=== PATIENT | female | born 1970 | race Caucasian/White ===

== ENCOUNTER 2016-09-25 09:11 | Emergency (ER) | payer MEDICAID ==
[2016-09-25] MEDS ORDERED: CYCLOBENZAPRINE HCL 10 MG TABLET PO ONE (10:41)
[2016-09-25] MEDS ORDERED: KETOROLAC TROMETHAMINE 60 MG/2 ML SDV IM ONE (10:41)
[2016-09-25] MEDS ORDERED: TRAMADOL HCL 50 MG TABLET PO ONE (10:49)
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
[2016-09-25 12:56] LABS: APPEARANCE,URINE CLEAR; BILIRUBIN,URINE NEGATIVE (NEGATIVE); GLUCOSE, URINE NEGATIVE (NEGATIVE); KETONES,URINE NEGATIVE (NEGATIVE); LEUKOCYTE ESTERASE,URINE NEGATIVE (NEGATIVE); NITRITE,URINE NEGATIVE (NEGATIVE); PROTEIN,URINE NEGATIVE (NEGATIVE); URINE SPECIFIC GRAVITY 1.005; UROBILINOGEN,URINE NEGATIVE mg/dL (<2.0)
[2016-09-25 13:06] LABS: ABSOLUTE EOSINOPHILS # (AUTO) 0.5 10^3/uL (0.0-0.6); ABSOLUTE LYMPHOCYTES (AUTO) 1.8 10^3/uL (0.5-4.7); ABSOLUTE MONOCYTES (AUTO) 0.5 10^3/uL (0.1-1.4); ABSOLUTE NEUT (AUTO) 5.9 10^3/uL (1.7-8.2); BASOPHILS % (AUTO) 0.4 % (0-2); EOSINOPHILS % (AUTO) 5.5 % (0-6); HEMATOCRIT 44.6 % (36.0-47.0); HGB HCT DIFFERENCE -2.6; LYMPHOCYTES % (AUTO) 20.6 % (13-45); MEAN CORPUSCULAR HGB CONC 31.4 g/dL (32.0-36.0); MEAN CORPUSCULAR VOLUME 92 fl (80-97); MONOCYTES % (AUTO) 5.6 % (3-13); RED BLOOD COUNT 4.83 10^6/uL (3.72-5.28); RED CELL DISTRIBUTION WIDTH 14.4 % (11.5-14.0); SEGMENTED NEUTROPHILS % (AUTO) 67.9 % (42-78); WHITE BLOOD COUNT 8.7 10^3/uL (4.0-10.5)
[2016-09-25 13:17] LABS: ALANINE AMINOTRANSFERASE 116 U/L (9-52); ALBUMIN 4.1 g/dL (3.5-5.0); ALKALINE PHOSPHATASE 137 U/L (38-126); ANION GAP 10 (5-19); ASPARTATE AMINO TRANSFERASE 126 U/L (14-36); BILIRUBIN,TOTAL 0.8 mg/dL (0.2-1.3); BLOOD UREA NITROGEN 7 mg/dL (7-20); CALCIUM 9.4 mg/dL (8.4-10.2); CARBON DIOXIDE 28 mmol/L (22-30); CHLORIDE 108 mmol/L (98-107); CREATININE RESULT 0.71 mg/dL (0.52-1.25); GLUCOSE 82 mg/dL (75-110); POTASSIUM 4.3 mmol/L (3.6-5.0); SODIUM 145.7 mmol/L (137-145); TOTAL PROTEIN 7.1 g/dL (6.3-8.2)
[2016-09-25 14:20] VITALS: BP 123/73
== END 2016-09-25 14:19 | disposition home or self-care (01) ==
LOC: ER 09:11
DX: M54.41 Lumbago with sciatica, right side (principal); G89.29 Other chronic pain; M54.9 Dorsalgia, unspecified; F17.210 Nicotine dependence, cigarettes, uncomplicated
CPT/HCPCS: 99283; 36415; 85025; 80053; 81001; J3490

== ENCOUNTER 2016-09-27 16:53 | Emergency (ER) | payer MEDICAID ==
--- NOTE | 2016-09-27 17:29 | ER Document Report ---
ED Medical Screen (RME) - General Stated Complaint: RIGHT SIDE BACK PAIN Time seen by provider: 17:27 Mode of Arrival: Medic Information source: Patient Notes: 36-year-old female complaining of right-sided low back pain since yesterday morning. She was seen in the emergency department yesterday and given muscle relaxers which are not helping. The pain is persisted. Urine got very strong smelling after she got home yesterday. sHe also has urinary hesitancy. sHe came in by ambulance She did not have a ride to the emergency department like she did yesterday. TRAVEL OUTSIDE OF THE [place] IN LAST 30 DAYS: No - Related Data Allergies/Adverse Reactions: aspirin [Aspirin] Allergy (Severe, Verified 09/25/16 09:29) Difficulty breathing levofloxacin [From Levaquin] Allergy (Severe, Verified 09/25/16 09:29) raw skin morphine [Morphine] Allergy (Severe, Verified 09/25/16 09:29) migraines, n/v Penicillins Allergy (Severe, Verified 09/25/16 09:29) Hives NSAIDS (Non-Steroidal Anti-Inflamma Allergy (Mild, Verified 09/25/16 09:29) STOMACH BLEEDING Past Medical History - Past Medical History Cardiac Medical History: Denies: Hx Coronary Artery Disease, Hx Heart Attack, Hx Hypertension Pulmonary Medical History: Reports: Hx Asthma - "no problems for about 4 years" , Hx Pneumonia - age 3 Denies: Hx Bronchitis, Hx COPD Neurological Medical History: Denies: Hx Cerebrovascular Accident. Comment Only : Hx Seizures - "essential tremors" Endocrine Medical History: Reports: Hx Hypothyroidism. Denies: Hx Diabetes Mellitus Type 1, Hx Diabetes Mellitus Type 2 Renal/ Medical History: Denies: Hx Peritoneal Dialysis GI Medical History: Reports: Hx Gastroesophageal Reflux Disease, Hx Ulcer, Hx Colonoscopy, Hx Endoscopy Musculoskeltal Medical History: Denies Hx Arthritis, Reports Hx Musculoskeletal Deformity, Reports Hx Musculoskeletal Trauma Psychiatric Medical History: Reports: Hx Anxiety, Hx Bipolar Disorder, Hx Depression - ANXIETY, Hx Schizophrenia - AFFECTIVE Traumatic Medical History: Reports: Hx Fractures Past Surgical History: Reports: Hx Abdominal Surgery - GASTRIC BYPASS, LIVER CAUTERY, Hx Appendectomy, Hx Bowel Surgery, Hx Section - X3, Hx Cholecystectomy, Hx Gastric Bypass Surgery, Hx Genitourinary Surgery - tube removal, Hx Herniorrhaphy, Hx Orthopedic Surgery - R SHOULDER, FOOT, Hx Tubal Ligation, Hx Umbilical Hernia. Denies: Hx Hysterectomy - Immunizations Immunizations up to date: Yes Hx Diphtheria, Pertussis, Tetanus Vaccination: Yes - 2014
[2016-09-27 18:15] LABS: APPEARANCE,URINE CLEAR; BILIRUBIN,URINE NEGATIVE (NEGATIVE); GLUCOSE, URINE NEGATIVE (NEGATIVE); KETONES,URINE NEGATIVE (NEGATIVE); LEUKOCYTE ESTERASE,URINE NEGATIVE (NEGATIVE); NITRITE,URINE NEGATIVE (NEGATIVE); PROTEIN,URINE NEGATIVE (NEGATIVE); URINE SPECIFIC GRAVITY 1.003; UROBILINOGEN,URINE NEGATIVE mg/dL (<2.0)
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
[2016-09-27 18:53] VITALS: BP 135/79
== END 2016-09-27 18:53 | disposition home or self-care (01) ==
LOC: ER 16:53
DX: M54.6 Pain in thoracic spine (principal); R10.9 Unspecified abdominal pain; M54.9 Dorsalgia, unspecified; V89.2XXA Person injured in unspecified motor-vehicle accident, traffic, initial encounter
CPT/HCPCS: 81001; 87086; 99284

== ENCOUNTER → 2016-10-22 | Outpatient (CLI) | payer MEDICAID | LOC: RAD 10:13 | PROVIDERS: ATTEND Physician Assistant | DX: R94.5 Abnormal results of liver function studies (principal) | CPT/HCPCS: 76705 ==

== ENCOUNTER 2016-11-28 19:15 | Emergency (ER) | payer MEDICAID ==
--- NOTE | 2016-11-28 19:28 | ER Document Report ---
ED Medical Screen (RME) - General Chief Complaint: Knee Pain Stated Complaint: KNEE PAIN Notes: Patient states she thinks she twisted her right knee coming down the stairs couple of days ago. Pain increases with ambulation. No previous injuries to the knee. Patient is followed by pain management for nerve damage in her back and pain down her left leg.. I have greeted and performed a rapid initial assessment of this patient. A comprehensive ED assessment and evaluation of the patient, analysis of test results and completion of the medical decision making process will be conducted by additional ED providers. TRAVEL OUTSIDE OF THE [place] IN LAST 30 DAYS: No - Related Data Allergies/Adverse Reactions: aspirin [Aspirin] Allergy (Severe, Verified 09/27/16 17:27) Difficulty breathing levofloxacin [From Levaquin] Allergy (Severe, Verified 09/27/16 17:27) raw skin morphine [Morphine] Allergy (Severe, Verified 09/27/16 17:27) migraines, n/v Penicillins Allergy (Severe, Verified 09/27/16 17:27) Hives NSAIDS (Non-Steroidal Anti-Inflamma Allergy (Mild, Verified 09/27/16 17:27) STOMACH BLEEDING Past Medical History - Past Medical History Cardiac Medical History: Denies: Hx Coronary Artery Disease, Hx Heart Attack, Hx Hypertension Pulmonary Medical History: Reports: Hx Asthma - "no problems for about 4 years" , Hx Pneumonia - age 3 Denies: Hx Bronchitis, Hx COPD Neurological Medical History: Denies: Hx Cerebrovascular Accident. Comment Only : Hx Seizures - "essential tremors" Endocrine Medical History: Reports: Hx Hypothyroidism. Denies: Hx Diabetes Mellitus Type 1, Hx Diabetes Mellitus Type 2 Renal/ Medical History: Denies: Hx Peritoneal Dialysis GI Medical History: Reports: Hx Gastroesophageal Reflux Disease, Hx Ulcer, Hx Colonoscopy, Hx Endoscopy Musculoskeltal Medical History: Denies Hx Arthritis, Reports Hx Musculoskeletal Deformity, Reports Hx Musculoskeletal Trauma Psychiatric Medical History: Reports: Hx Anxiety, Hx Bipolar Disorder, Hx Depression - ANXIETY, Hx Schizophrenia - AFFECTIVE Traumatic Medical History: Reports: Hx Fractures Past Surgical History: Reports: Hx Abdominal Surgery - GASTRIC BYPASS, LIVER CAUTERY, Hx Appendectomy, Hx Bowel Surgery, Hx Section - X3, Hx Cholecystectomy, Hx Gastric Bypass Surgery, Hx Genitourinary Surgery - tube removal, Hx Herniorrhaphy, Hx Orthopedic Surgery - R SHOULDER, FOOT, Hx Tubal Ligation, Hx Umbilical Hernia. Denies: Hx Hysterectomy - Immunizations Immunizations up to date: Yes Hx Diphtheria, Pertussis, Tetanus Vaccination: Yes - 2014
--- NOTE | 2016-11-28 21:23 | ER Document Report ---
HPI - HPI Patient complains to provider of: right knee injury Onset: Other Onset/Duration: Gradual - Days ago Quality of pain: Achy, Throbbing Pain Level: 5 Context: 46-year-old female twisted her right knee on the stairs several days ago. It hurts medial and laterally in the anterior portion of her right knee. She is using a cane because of chronic left leg pain and chronic low back pain that she takes hydrocodone for. She states she has plenty of hydrocodone for pain. She has been to x-ray and the x-ray is negative. Associated Symptoms: None Exacerbated by: Walking Relieved by: Denies Similar symptoms previously: No Recently seen / treated by doctor: No - ROS ROS below otherwise negative: Yes Systems Reviewed and Negative: Yes All other systems reviewed and negative - REPRODUCTIVE LMP: na Reproductive: DENIES: : - DERM Skin Color: Normal Past Medical History - General Information source: Patient - Social History Smoking Status: Current Every Day Smoker Chew tobacco use (# tins/day): No Frequency of alcohol use: None Drug Abuse: None Family History: Arthritis, CAD, CVA, DM, Hyperlipidemia, Hypertension, Malignancy, Thyroid Disfunction Patient has suicidal ideation: No Patient has homicidal ideation: No Pulmonary Medical History: Reports: Hx Asthma - "no problems for about 4 years" , Hx Pneumonia - age 3 Neurological Medical History: Comment Only: Hx Seizures - "essential tremors" Endocrine Medical History: Reports: Hx Hypothyroidism GI Medical History: Reports: Hx Gastroesophageal Reflux Disease, Hx Ulcer, Hx Colonoscopy, Hx Endoscopy Musculoskeltal Medical History: Reports Hx Musculoskeletal Deformity, Reports Hx Musculoskeletal Trauma Psychiatric Medical History: Reports: Hx Anxiety, Hx Bipolar Disorder, Hx Depression - ANXIETY, Hx Schizophrenia - AFFECTIVE Traumatic Medical History: Reports: Hx Fractures Past Surgical History: Reports: Hx Abdominal Surgery - GASTRIC BYPASS, LIVER CAUTERY, Hx Appendectomy, Hx Bowel Surgery, Hx Section - X3, Hx Cholecystectomy, Hx Gastric Bypass Surgery, Hx Genitourinary Surgery - tube removal, Hx Herniorrhaphy, Hx Orthopedic Surgery - R SHOULDER, FOOT, Hx Tubal Ligation, Hx Umbilical Hernia. Denies: Hx Hysterectomy - Immunizations Immunizations up to date: Yes Hx Diphtheria, Pertussis, Tetanus Vaccination: Yes - 2015 Vertical Provider Document - CONSTITUTIONAL Agree With Documented VS: Yes Exam Limitations: No Limitations - INFECTION CONTROL TRAVEL OUTSIDE OF THE [place] IN LAST 30 DAYS: No - HEENT HEENT: Normocephalic - NECK Neck: Supple - RESPIRATORY O2 Sat by Pulse Oximetry: 98 - MUSCULOSKELETAL/EXTREMETIES Musculoskeletal/Extremeties: MAEW, FROM, Tender - Medial and lateral right knee which is warm but not red. No effusion. Notes: Patellar tendon is intact - NEURO Level of Consciousness: Awake, Alert Motor/Sensory: No Motor Deficit, No Sensory Deficit - DERM Integumentary: Warm, Dry, No Rash Course - Vital Signs Vital signs: Temp Pulse Resp BP Pulse Ox 97.6 F 96 18 132/86 H 98 11/28/16 19:26 11/28/16 19:26 11/28/16 19:26 11/28/16 19:26 11/28/16 19:26 Procedures - Immobilization Right Knee Time completed: 22:00 Pre-Proc Neuro Vasc Exam: Normal Immobilizer type: Maximus wrap, Crutches Performed by: Other - RN DIGESTIVE Post-Proc Neuro Vasc Exam: Normal Alignment checked and good: Yes
[2016-11-28 22:46] VITALS: BP 146/88
== END 2016-11-28 22:44 | disposition home or self-care (01) ==
LOC: ER 19:15
DX: S83.91XA Sprain of unspecified site of right knee, initial encounter (principal); X50.0XXA Overexertion from strenuous movement or load, initial encounter; F17.200 Nicotine dependence, unspecified, uncomplicated; E03.9 Hypothyroidism, unspecified; K21.9 Gastro-esophageal reflux disease without esophagitis; Z98.84 Bariatric surgery status; Z90.49 Acquired absence of other specified parts of digestive tract; Z98.51 Tubal ligation status
CPT/HCPCS: 99283